=== PATIENT | female | born 1985 | race Caucasian/White ===

== ENCOUNTER 2017-04-22 16:00 | Emergency (ER) | payer OTHER ==
[~2017-04-22] VITALS: Ht 170.2 cm; Wt 61.2 kg
[~2017-04-22 16:00] MED LIST: ATIVAN; MED MARIJUANA; NORCO; QUET200T PO; TRAMADOL
[2017-04-22 17:13] VITALS: BP 118/71
--- NOTE | 2017-04-22 17:30 | NUR ---
Patient ambulated to bed 08.
--- NOTE | 2017-04-22 17:40 | NUR ---
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
--- NOTE | 2017-04-22 17:45 | NUR ---
PT PRESENTS TO ER W/C/O ABSCESSES TO LEFT GROIN AND RIGHT CALF X2 DAYS. 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 ER MD MADE AWARE OF PT STATUS.
[2017-04-22] MEDS ORDERED: HYDROcodone/APAP 10/325 MG 1 TAB TAB PO ONE (18:10)
[2017-04-22 18:24] VITALS: BP 132/76
--- NOTE | 2017-04-22 18:24 | NUR ---
Patient discharged with v/s stable. Written and verbal after care instructions given and explained. Patient alert, oriented and verbalized understanding of instructions. Ambulatory with steady gait. All questions addressed prior to discharge. ID band removed. Patient advised to follow up with PMD. Rx of NORCO, BACTRIM, KEFLEX given. Patient educated on indication of medication including possible reaction and side effects. Opportunity to ask questions provided and answered.
== END 2017-04-22 18:24 | disposition home or self-care (01) ==
LOC: MED 16:00
DX: L02.415 Cutaneous abscess of right lower limb (principal); L02.211 Cutaneous abscess of abdominal wall
CPT/HCPCS: 99283